=== PATIENT | female | born 1985 | race African-American/Black ===

== ENCOUNTER 2017-08-25 20:03 | Emergency (ER) | payer BC ==
[2017-08-26 02:32] LABS: ADD MAN DIFF? NO
[2017-08-26 02:39] LABS: BASOPHILS % 0.1 % (0.0-2.0); EOSINOPHILS % 0.1 % (0.0-7.0); HEMATOCRIT 31.6 % (37.0-47.0); HEMOGLOBIN 10.7 g/dl (12.0-16.0); LYMPHOCYTES # 0.6 10^3/ul (0.8-2.9); LYMPHOCYTES % 6.7 % (15.0-51.0); MEAN CORPUSCULAR HEMOGLOBIN 30.7 pg (29.0-33.0); MEAN CORPUSCULAR HGB CONC 33.9 g/dl (32.0-37.0); MEAN CORPUSCULAR VOLUME 90.8 fl (82.0-101.0); MEAN PLATELET VOLUME 10.9 fl (7.4-10.4); MONOCYTE # 0.4 10^3/ul (0.3-0.9); MONOCYTES % 4.2 % (0.0-11.0); NEUTROPHIL # 7.9 10^3/ul (1.6-7.5); NEUTROPHILS % 88.6 % (39.0-77.0); PLATELET COUNT 246 10^3/UL (140-415); RED BLOOD COUNT 3.48 10^6/ul (4.20-5.40); RED CELL DISTRIBUTION WIDTH 11.9 % (11.5-14.5)
[2017-08-26 02:39] LABS: WHITE BLOOD COUNT 8.9 10^3/ul (4.8-10.8)
[2017-08-26 02:58] LABS: ADD UMIC YES; UR ASCORBIC ACID NEGATIVE (NEGATIVE); UR BACTERIA FEW /HPF (NONE SEEN); UR BILIRUBIN (Dip) NEGATIVE (NEGATIVE); UR BLOOD (Dip) NEGATIVE (NEGATIVE); UR CLARITY CLEAR (CLEAR); UR COLOR STRAW (YELLOW); UR GLUCOSE (Dip) NEGATIVE (NEGATIVE); UR KETONES (Dip) NEGATIVE (NEGATIVE); UR LEUKOCYTE ESTERASE (Dip) 1+ Leu/ul (NEGATIVE); UR NITRITE (Dip) NEGATIVE (NEGATIVE); UR RBC 2 /HPF (0-5); UR SPECIFIC GRAVITY (Dip) 1.006 (1.003-1.030); UR SQUAMOUS EPITHELIAL CELL FEW /HPF (FEW); UR TOTAL PROTEIN (Dip) NEGATIVE (NEGATIVE); UR UROBILINOGEN (Dip) NEGATIVE (NEGATIVE); UR WBC 12 /HPF (0-5)
== END 2017-08-26 04:37 | disposition home or self-care (01) ==
LOC: FTE 20:03
DX: O23.11 Infections of bladder in pregnancy, first trimester (principal); R10.2 Pelvic and perineal pain; Z3A.13 13 weeks gestation of pregnancy
CPT/HCPCS: 36415; 76801; 81001; 84702; 85025; 99284-25

== ENCOUNTER 2017-10-16 11:31 | Outpatient (CLI) | payer BC ==
[2017-10-16 13:02] LABS: ADD UMIC YES; UR ASCORBIC ACID 40 mg/dL (NEGATIVE); UR BACTERIA FEW /HPF (NONE SEEN); UR BILIRUBIN (Dip) NEGATIVE (NEGATIVE); UR BLOOD (Dip) NEGATIVE (NEGATIVE); UR CLARITY SLIGHTLY CLOUDY (CLEAR); UR COLOR YELLOW (YELLOW); UR GLUCOSE (Dip) NEGATIVE (NEGATIVE); UR KETONES (Dip) NEGATIVE (NEGATIVE); UR LEUKOCYTE ESTERASE (Dip) 2+ Leu/ul (NEGATIVE); UR MUCUS FEW /HPF (NONE SEEN); UR NITRITE (Dip) NEGATIVE (NEGATIVE); UR RBC 1 /HPF (0-5); UR SPECIFIC GRAVITY (Dip) 1.024 (1.003-1.030); UR SQUAMOUS EPITHELIAL CELL FEW /HPF (FEW); UR TOTAL PROTEIN (Dip) NEGATIVE (NEGATIVE); UR UROBILINOGEN (Dip) NEGATIVE (NEGATIVE); UR WBC 5 /HPF (0-5)
== END 2017-10-16 13:50 | disposition home or self-care (01) ==
LOC: OBT 11:31 → L-D 11:31 → OBT 13:50
DX: O26.892 Other specified pregnancy related conditions, second trimester (principal); Z3A.20 20 weeks gestation of pregnancy; R42 Dizziness and giddiness
CPT/HCPCS: 76817; 81001

== ENCOUNTER 2017-10-19 01:55 | Inpatient (IN) | payer BC ==
[2017-10-19 03:56] LABS: ADD UMIC YES; UR ASCORBIC ACID NEGATIVE (NEGATIVE); UR BACTERIA FEW /HPF (NONE SEEN); UR BILIRUBIN (Dip) NEGATIVE (NEGATIVE); UR BLOOD (Dip) NEGATIVE (NEGATIVE); UR CLARITY CLEAR (CLEAR); UR COLOR YELLOW (YELLOW); UR GLUCOSE (Dip) NEGATIVE (NEGATIVE); UR KETONES (Dip) 1+ mg/dL (NEGATIVE); UR LEUKOCYTE ESTERASE (Dip) 1+ Leu/ul (NEGATIVE); UR NITRITE (Dip) NEGATIVE (NEGATIVE); UR RBC 1 /HPF (0-5); UR SPECIFIC GRAVITY (Dip) 1.006 (1.003-1.030); UR SQUAMOUS EPITHELIAL CELL FEW /HPF (FEW); UR TOTAL PROTEIN (Dip) NEGATIVE (NEGATIVE); UR UROBILINOGEN (Dip) NEGATIVE (NEGATIVE); UR WBC 4 /HPF (0-5)
[2017-10-19] MEDS: DEXTROSE 5%-LR 1,000 ML IV (04:08)
[2017-10-19] MEDS: ACETAMINOPHEN 325 MG TAB PO (04:08)
[2017-10-19] MEDS ORDERED: morphine 2 MG INJ IV ×2 (04:40→10:58)
[2017-10-19 04:53] LABS: ADD MAN DIFF? NO
[2017-10-19 05:01] LABS: BASOPHILS % 0.1 % (0.0-2.0); EOSINOPHILS % 0.2 % (0.0-7.0); HEMATOCRIT 27.9 % (37.0-47.0); HEMOGLOBIN 9.7 g/dl (12.0-16.0); LYMPHOCYTES % 8.2 % (15.0-51.0); MEAN CORPUSCULAR HEMOGLOBIN 31.2 pg (29.0-33.0); MEAN CORPUSCULAR HGB CONC 34.8 g/dl (32.0-37.0); MEAN CORPUSCULAR VOLUME 89.7 fl (82.0-101.0); MEAN PLATELET VOLUME 11.3 fl (7.4-10.4); MONOCYTE # 0.9 10^3/ul (0.3-0.9); MONOCYTES % 7.8 % (0.0-11.0); NEUTROPHIL # 9.6 10^3/ul (1.6-7.5); NEUTROPHILS % 83.4 % (39.0-77.0); PLATELET COUNT 221 10^3/UL (140-415); RED BLOOD COUNT 3.11 10^6/ul (4.20-5.40); RED CELL DISTRIBUTION WIDTH 11.9 % (11.5-14.5)
[2017-10-19 05:01] LABS: WHITE BLOOD COUNT 11.5 10^3/ul (4.8-10.8)
[2017-10-19] MEDS: morphine 2 MG INJ IV (05:44)
[2017-10-19] MEDS: LACTATED RINGER'S 1,000 ML IV ×2 (09:13→17:09)
[2017-10-19] MEDS: PRENATAL VITAMIN PO (09:16)
[2017-10-19] MEDS: morphine 10 MG INJ IV (11:09)
[2017-10-19 11:14] LABS: ADD MAN DIFF? NO
[2017-10-19 11:19] LABS: WHITE BLOOD COUNT 11.1 10^3/ul (4.8-10.8)
[2017-10-19 11:19] LABS: BASOPHILS % 0.1 % (0.0-2.0); EOSINOPHILS % 0.2 % (0.0-7.0); HEMOGLOBIN 10.3 g/dl (12.0-16.0); LYMPHOCYTES # 1.1 10^3/ul (0.8-2.9); LYMPHOCYTES % 9.8 % (15.0-51.0); MEAN CORPUSCULAR HEMOGLOBIN 30.7 pg (29.0-33.0); MEAN CORPUSCULAR HGB CONC 34.3 g/dl (32.0-37.0); MEAN CORPUSCULAR VOLUME 89.3 fl (82.0-101.0); MEAN PLATELET VOLUME 10.8 fl (7.4-10.4); MONOCYTE # 0.8 10^3/ul (0.3-0.9); MONOCYTES % 7.2 % (0.0-11.0); NEUTROPHIL # 9.2 10^3/ul (1.6-7.5); NEUTROPHILS % 82.5 % (39.0-77.0); PLATELET COUNT 244 10^3/UL (140-415); RED BLOOD COUNT 3.36 10^6/ul (4.20-5.40); RED CELL DISTRIBUTION WIDTH 11.9 % (11.5-14.5)
[2017-10-19 11:37] LABS: AMYLASE 54 U/L (11-123)
[2017-10-19 11:39] LABS: ALANINE AMINOTRANSFERASE 34 IU/L (13-69); ALBUMIN 3.7 g/dl (3.3-4.9); ALBUMIN/GLOBULIN RATIO 1.02; ALKALINE PHOSPHATASE 93 IU/L (42-121); ANION GAP 14 (8-16); ASPARTATE AMINO TRANSFERASE 21 IU/L (15-46); BILIRUBIN,INDIRECT 0.2 mg/dl (0-1.1); BILIRUBIN,TOTAL 0.2 mg/dl (0.2-1.3); BLOOD UREA NITROGEN 4 mg/dl (7-20); CALCIUM 9.5 mg/dl (8.4-10.2); CARBON DIOXIDE 30 mmol/L (21-31); CHLORIDE 102 mmol/L (97-110); GLUCOSE 94 mg/dl (70-220); LIPASE 44 U/L (23-300); POTASSIUM 3.5 mmol/L (3.5-5.1); SODIUM 142 mmol/L (135-144); TOTAL PROTEIN 7.3 g/dl (6.1-8.1)
[2017-10-19] MEDS: INDOMETHACIN 50 MG PO (13:46)
[2017-10-19] MEDS: INDOMETHACIN 25 MG PO (17:51)
[2017-10-20] MEDS: INDOMETHACIN 25 MG PO ×4 (00:06→18:04)
[2017-10-20] MEDS: LACTATED RINGER'S 1,000 ML IV ×2 (01:41→08:51)
[2017-10-20] MEDS: PRENATAL VITAMIN PO (08:51)
[2017-10-21] MEDS: INDOMETHACIN 25 MG PO ×3 (00:08→11:55)
[2017-10-21] MEDS: ACETAMINOPHEN 325 MG TAB PO (08:43)
[2017-10-21] MEDS: PRENATAL VITAMIN PO (08:43)
== END 2017-10-21 13:57 | disposition home or self-care (01) | DRG 782 ==
LOC: OBT 01:55 → L-D 01:55 → OBT 03:00 → L-D 03:00 → PP1 16:10
DX: O34.12 Maternal care for benign tumor of corpus uteri, second trimester (principal); Z3A.20 20 weeks gestation of pregnancy
CPT/HCPCS: 76817; 80053; 81001; 82150; 83690; 85025; 87086

== ENCOUNTER 2017-11-19 08:28 | Inpatient (IN) | payer BC ==
[2017-11-19] MEDS: LACTATED RINGER'S 500 ML IV (10:00)
[2017-11-19] MEDS ORDERED: MAGNESIUM SULFATE 4 GM/100 ML 100 ML (10:13)
[2017-11-19] MEDS ORDERED: LACTATED RINGER'S 1,000 ML IV (10:13)
[2017-11-19] MEDS: LACTATED RINGER'S 1,000 ML IV ×2 (10:29→12:45)
[2017-11-19] MEDS: BETAMET NA PHOS/AC(6 MG/ML) 5ML INJ IM (10:31)
[2017-11-19 10:34] LABS: ADD MAN DIFF? NO
[2017-11-19] MEDS: MAGNESIUM SULFATE 4 GM/100 ML 100 ML IV (10:38)
[2017-11-19 10:39] LABS: BASOPHILS % 0.1 % (0.0-2.0); EOSINOPHILS % 0.6 % (0.0-7.0); HEMATOCRIT 30.1 % (37.0-47.0); HEMOGLOBIN 10.5 g/dl (12.0-16.0); LYMPHOCYTES # 1.1 10^3/ul (0.8-2.9); LYMPHOCYTES % 15.8 % (15.0-51.0); MEAN CORPUSCULAR HEMOGLOBIN 30.7 pg (29.0-33.0); MEAN CORPUSCULAR HGB CONC 34.9 g/dl (32.0-37.0); MEAN PLATELET VOLUME 10.6 fl (7.4-10.4); MONOCYTE # 0.5 10^3/ul (0.3-0.9); MONOCYTES % 7.2 % (0.0-11.0); NEUTROPHIL # 5.1 10^3/ul (1.6-7.5); NEUTROPHILS % 75.7 % (39.0-77.0); PLATELET COUNT 232 10^3/UL (140-415); RED BLOOD COUNT 3.42 10^6/ul (4.20-5.40); RED CELL DISTRIBUTION WIDTH 12.3 % (11.5-14.5)
[2017-11-19 10:39] LABS: WHITE BLOOD COUNT 6.8 10^3/ul (4.8-10.8)
[2017-11-19] MEDS: AMPICILLIN 2 GM/NS (PMX) 100 ML IV (10:44)
[2017-11-19 10:57] LABS: ADD UMIC YES; UR ASCORBIC ACID NEGATIVE (NEGATIVE); UR BACTERIA FEW /HPF (NONE SEEN); UR BILIRUBIN (Dip) NEGATIVE (NEGATIVE); UR BLOOD (Dip) 2+ mg/dL (NEGATIVE); UR CLARITY CLEAR (CLEAR); UR COLOR YELLOW (YELLOW); UR GLUCOSE (Dip) NEGATIVE (NEGATIVE); UR KETONES (Dip) NEGATIVE (NEGATIVE); UR LEUKOCYTE ESTERASE (Dip) 1+ Leu/ul (NEGATIVE); UR MUCUS FEW /HPF (NONE SEEN); UR NITRITE (Dip) NEGATIVE (NEGATIVE); UR RBC 68 /HPF (0-5); UR SPECIFIC GRAVITY (Dip) 1.006 (1.003-1.030); UR TOTAL PROTEIN (Dip) NEGATIVE (NEGATIVE); UR UROBILINOGEN (Dip) NEGATIVE (NEGATIVE); UR WBC 16 /HPF (0-5)
[2017-11-19] MEDS ORDERED: OXYCODONE/ACETAMINOPHEN (5/325) TAB PO (11:00)
[2017-11-19] MEDS ORDERED: OXYTOCIN 30 UNITS/LR 500 ML IV ×2 (11:00→18:30)
[2017-11-19] MEDS ORDERED: IBUPROFEN 600 MG TAB PO (11:00)
[2017-11-19] MEDS ORDERED: METHYLERGONOVINE 0.2 MG INJ IM (11:00)
[2017-11-19] MEDS ORDERED: LIDOCAINE 1% (MPF) 30 ML INJ INJ (11:00)
[2017-11-19 11:01] LABS: ALANINE AMINOTRANSFERASE 20 IU/L (13-69); ALANINE AMINOTRANSFERASE 24 IU/L (13-69); ALBUMIN 3.9 g/dl (3.3-4.9); ALBUMIN/GLOBULIN RATIO 0.92; ALKALINE PHOSPHATASE 162 IU/L (42-121); ANION GAP 15 (8-16); ASPARTATE AMINO TRANSFERASE 24 IU/L (15-46); BILIRUBIN,INDIRECT 0.2 mg/dl (0-1.1); BILIRUBIN,TOTAL 0.2 mg/dl (0.2-1.3); BLOOD UREA NITROGEN 5 mg/dl (7-20); CALCIUM 9.6 mg/dl (8.4-10.2); CARBON DIOXIDE 24 mmol/L (21-31); CHLORIDE 104 mmol/L (97-110); CREATININE 0.67 mg/dl (0.44-1.00); GLUCOSE 78 mg/dl (70-220); POTASSIUM 4.2 mmol/L (3.5-5.1); SODIUM 139 mmol/L (135-144); TOTAL PROTEIN 8.1 g/dl (6.1-8.1); URIC ACID 4.5 mg/dl (3.1-7.9)
[2017-11-19 11:01] LABS: ASPARTATE AMINO TRANSFERASE 26 IU/L (15-46)
[2017-11-19 11:02] LABS: INR 0.99; PARTIAL THROMBOPLASTIN TIME 30.1 Sec (25.0-35.0); PROTIME 13.2 Sec (11.9-14.9)
[2017-11-19] MEDS: MAGNESIUM SULFATE 20 GM/500 ML 500 ML IV (11:09)
[2017-11-19] MEDS ORDERED: FENTAnyl 2MCG/ML-ROPIV 0.2% 100 ML (13:05)
[2017-11-19] MEDS: OXYTOCIN 30 UNITS/LR 500 ML IV ×3 (13:51→14:33)
[2017-11-19] MEDS: MISOPROSTOL 200 MCG TAB PR (13:57)
[2017-11-19] MEDS: CARBOPROST 250 MCG INJ IM (14:05)
[2017-11-19] MEDS ORDERED: AMPICILLIN 1 GM/NS (PMX) 50 ML IV (14:30)
[2017-11-19] MEDS: LACTATED RINGER'S 1,000 ML IV* (18:13)
[2017-11-19] MEDS ORDERED: MISOPROSTOL 200 MCG TAB PR (18:30)
[2017-11-19] MEDS ORDERED: ACETAMINOPHEN 325 MG TAB PO (18:30)
[2017-11-19] MEDS ORDERED: WITCH HAZEL/GLYCERIN PAD PR (18:30)
[2017-11-19] MEDS ORDERED: CARBOPROST 250 MCG INJ IM (18:30)
[2017-11-19] MEDS ORDERED: DIBUCAINE 1% 30 GM OINT PR (18:30)
[2017-11-19] MEDS ORDERED: BENZOCAINE 20% 56 ML SPRAY TOP (18:30)
[2017-11-19] MEDS ORDERED: INFLUENZA VIRUS VACCINE 0.5 ML SYG IM* (21:00)
[2017-11-19] MEDS: SENNA/DOCUSATE NA (8.6MG/50MG) TAB PO (21:00)
[2017-11-19 22:55] LABS: RAPID PLASMA REAGIN NONREACTIVE (NR)
[2017-11-20] MEDS: IBUPROFEN 600 MG TAB PO ×4 (00:41→14:22)
[2017-11-20] MEDS: LACTATED RINGER'S 1,000 ML IV* ×3 (02:13→18:13)
[2017-11-20] MEDS: SENNA/DOCUSATE NA (8.6MG/50MG) TAB PO ×2 (09:00→21:00)
[2017-11-20] MEDS ORDERED: PRENATAL VITAMIN PO (09:00)
[2017-11-20 15:29] LABS: ADD MAN DIFF? NO
[2017-11-20 15:32] LABS: BASOPHILS % 0.1 % (0.0-2.0); EOSINOPHILS % 0.2 % (0.0-7.0); HEMATOCRIT 25.1 % (37.0-47.0); HEMOGLOBIN 8.5 g/dl (12.0-16.0); LYMPHOCYTES # 1.2 10^3/ul (0.8-2.9); LYMPHOCYTES % 10.3 % (15.0-51.0); MEAN CORPUSCULAR HGB CONC 33.9 g/dl (32.0-37.0); MEAN CORPUSCULAR VOLUME 88.7 fl (82.0-101.0); MEAN PLATELET VOLUME 11.3 fl (7.4-10.4); MONOCYTE # 0.9 10^3/ul (0.3-0.9); MONOCYTES % 7.9 % (0.0-11.0); NEUTROPHIL # 9.2 10^3/ul (1.6-7.5); NEUTROPHILS % 81.1 % (39.0-77.0); PLATELET COUNT 234 10^3/UL (140-415); RED BLOOD COUNT 2.83 10^6/ul (4.20-5.40); RED CELL DISTRIBUTION WIDTH 12.7 % (11.5-14.5)
[2017-11-20 15:32] LABS: WHITE BLOOD COUNT 11.3 10^3/ul (4.8-10.8)
[2017-11-20] MEDS: HYDROCODONE/APAP (5/325) TAB PO (22:08)
[2017-11-21] MEDS: IBUPROFEN 600 MG TAB PO ×4 (00:20→17:23)
[2017-11-21] MEDS: LACTATED RINGER'S 1,000 ML IV* (02:13)
[2017-11-21] MEDS: SENNA/DOCUSATE NA (8.6MG/50MG) TAB PO ×2 (09:00→21:00)
[2017-11-21] MEDS: DIPHTH/TET/ACEL PERTUSS (ADULT) 0.5 ML VIAL IM* (09:39)
[2017-11-21] MEDS: FERROUS SULFATE (EC) 325 MG TAB PO ×3 (09:49→21:13)
[2017-11-21 19:53] LABS: ADD MAN DIFF? NO
[2017-11-21 19:55] LABS: BASOPHILS % 0.2 % (0.0-2.0); EOSINOPHILS # 0.1 10^3/ul (0.0-0.5); EOSINOPHILS % 0.4 % (0.0-7.0); HEMATOCRIT 28.4 % (37.0-47.0); HEMOGLOBIN 9.7 g/dl (12.0-16.0); LYMPHOCYTES # 1.7 10^3/ul (0.8-2.9); LYMPHOCYTES % 11.4 % (15.0-51.0); MEAN CORPUSCULAR HEMOGLOBIN 30.5 pg (29.0-33.0); MEAN CORPUSCULAR HGB CONC 34.2 g/dl (32.0-37.0); MEAN CORPUSCULAR VOLUME 89.3 fl (82.0-101.0); MEAN PLATELET VOLUME 10.8 fl (7.4-10.4); MONOCYTE # 0.9 10^3/ul (0.3-0.9); MONOCYTES % 6.1 % (0.0-11.0); NEUTROPHIL # 11.9 10^3/ul (1.6-7.5); NEUTROPHILS % 81.4 % (39.0-77.0); PLATELET COUNT 265 10^3/UL (140-415); RED BLOOD COUNT 3.18 10^6/ul (4.20-5.40); RED CELL DISTRIBUTION WIDTH 12.6 % (11.5-14.5)
[2017-11-21 19:55] LABS: WHITE BLOOD COUNT 14.7 10^3/ul (4.8-10.8)
[2017-11-21 20:05] LABS: ADD UMIC YES; UR ASCORBIC ACID NEGATIVE (NEGATIVE); UR BILIRUBIN (Dip) NEGATIVE (NEGATIVE); UR BLOOD (Dip) 3+ mg/dL (NEGATIVE); UR CLARITY CLEAR (CLEAR); UR COLOR STRAW (YELLOW); UR GLUCOSE (Dip) NEGATIVE (NEGATIVE); UR KETONES (Dip) NEGATIVE (NEGATIVE); UR LEUKOCYTE ESTERASE (Dip) 2+ Leu/ul (NEGATIVE); UR NITRITE (Dip) NEGATIVE (NEGATIVE); UR RBC 14 /HPF (0-5); UR SPECIFIC GRAVITY (Dip) 1.008 (1.003-1.030); UR TOTAL PROTEIN (Dip) NEGATIVE (NEGATIVE); UR UROBILINOGEN (Dip) NEGATIVE (NEGATIVE); UR WBC 18 /HPF (0-5)
[2017-11-21 20:23] LABS: ALANINE AMINOTRANSFERASE 26 IU/L (13-69); ALBUMIN 4.1 g/dl (3.3-4.9); ALBUMIN/GLOBULIN RATIO 1.05; ALKALINE PHOSPHATASE 125 IU/L (42-121); ANION GAP 16 (8-16); ASPARTATE AMINO TRANSFERASE 29 IU/L (15-46); BLOOD UREA NITROGEN 7 mg/dl (7-20); CALCIUM 9.7 mg/dl (8.4-10.2); CARBON DIOXIDE 29 mmol/L (21-31); CHLORIDE 100 mmol/L (97-110); CREATININE 0.75 mg/dl (0.44-1.00); GLUCOSE 85 mg/dl (70-220); POTASSIUM 3.7 mmol/L (3.5-5.1); SODIUM 141 mmol/L (135-144); URIC ACID 3.2 mg/dl (3.1-7.9)
[2017-11-22] MEDS: IBUPROFEN 600 MG TAB PO ×4 (00:08→17:48)
[2017-11-22] MEDS: SENNA/DOCUSATE NA (8.6MG/50MG) TAB PO ×2 (09:52→21:00)
[2017-11-22] MEDS: FERROUS SULFATE (EC) 325 MG TAB PO ×3 (09:52→21:13)
[2017-11-22] MEDS: LABETALOL 200 MG TAB PO (22:01)
[2017-11-23] MEDS: HYDROCODONE/APAP (5/325) TAB PO (01:50)
[2017-11-23] MEDS: LABETALOL 200 MG TAB PO (05:56)
[2017-11-23] MEDS: IBUPROFEN 600 MG TAB PO ×4 (05:56→18:24)
[2017-11-23] MEDS: FERROUS SULFATE (EC) 325 MG TAB PO ×3 (08:54→20:46)
[2017-11-23] MEDS: SENNA/DOCUSATE NA (8.6MG/50MG) TAB PO ×2 (08:55→20:47)
[2017-11-23] MEDS: NIFEdipine (XL) 30 MG TAB PO ×2 (11:42→20:46)
[2017-11-24] MEDS: IBUPROFEN 600 MG TAB PO ×4 (00:11→18:00)
[2017-11-24] MEDS: FERROUS SULFATE (EC) 325 MG TAB PO ×3 (08:38→21:39)
[2017-11-24] MEDS: NIFEdipine (XL) 30 MG TAB PO ×2 (08:43→08:44)
[2017-11-24] MEDS: SENNA/DOCUSATE NA (8.6MG/50MG) TAB PO ×2 (08:44→21:39)
[2017-11-24] MEDS ORDERED: LABETALOL 200 MG TAB PO (21:00)
[2017-11-24] MEDS: HYDROCODONE/APAP (5/325) TAB PO (21:38)
[2017-11-24] MEDS: LABETALOL 100 MG TAB PO (21:56)
[2017-11-25] MEDS: IBUPROFEN 600 MG TAB PO ×4 (05:56→18:00)
[2017-11-25 08:01] LABS: CHOLESTEROL 191 mg/dl (100-200)
[2017-11-25 08:01] LABS: CHOL/HDL RATIO 2.9 RATIO; HDL CHOLESTEROL 64 mg/dl (34-82); LDL CHOLESTEROL,CALCULATED 117 mg/dl; TRIGLYCERIDES 48 mg/dl (0-149)
[2017-11-25] MEDS: FERROUS SULFATE (EC) 325 MG TAB PO ×3 (08:29→21:03)
[2017-11-25] MEDS: LABETALOL 100 MG TAB PO ×3 (08:29→21:05)
[2017-11-25] MEDS: SENNA/DOCUSATE NA (8.6MG/50MG) TAB PO ×2 (08:30→21:00)
[2017-11-25] MEDS ORDERED: LABETALOL 100 MG TAB PO (09:00)
[2017-11-25] MEDS: HYDROCODONE/APAP (5/325) TAB PO (22:35)
[2017-11-26] MEDS: IBUPROFEN 600 MG TAB PO ×5 (06:00→17:40)
[2017-11-26] MEDS: FERROUS SULFATE (EC) 325 MG TAB PO ×2 (08:48→13:04)
[2017-11-26] MEDS: LABETALOL 100 MG TAB PO (08:56)
[2017-11-26] MEDS: SENNA/DOCUSATE NA (8.6MG/50MG) TAB PO (09:00)
== END 2017-11-26 19:40 | disposition home or self-care (01) | DRG 774 ==
LOC: OBT 08:28 → MS4 11-24 03:17 → L-D 08:30 → OBT 10:12 → L-D 10:12 → PP1 18:13
PROC: 10E0XZZ Delivery of Products of Conception, External Approach (ICD-10-PCS; principal; 2017-11-19)
PROC: 4A1HXCZ Monitoring of Products of Conception, Cardiac Rate, External Approach (ICD-10-PCS; 2017-11-19)
DX: O60.14X0 Preterm labor third trimester with preterm delivery third trimester, not applicable or unspecified (principal); O10.92 Unspecified pre-existing hypertension complicating childbirth; O99.43 Diseases of the circulatory system complicating the puerperium; O99.13 Other diseases of the blood and blood-forming organs and certain disorders involving the immune mechanism complicating the puerperium; R00.0 Tachycardia, unspecified; D72.829 Elevated white blood cell count, unspecified; O99.344 Other mental disorders complicating childbirth; F41.9 Anxiety disorder, unspecified; O99.02 Anemia complicating childbirth; Z3A.25 25 weeks gestation of pregnancy; Z37.0 Single live birth
CPT/HCPCS: 62319; 76641-50; 76815; 76817; 80053; 80061; 81001; 84443; 84450; 84460; 84560; 85025; 85384; 85610; 85730; 86592; 86850; 86900; 86901; 88307; 90686; 93005; 93306

== ENCOUNTER 2017-12-16 06:41 | Emergency (ER) | payer BC ==
[2017-12-16 07:36] LABS: ADD MAN DIFF? NO
[2017-12-16 07:38] LABS: BASOPHILS % 0.4 % (0.0-2.0); EOSINOPHILS # 0.2 10^3/ul (0.0-0.5); EOSINOPHILS % 3.5 % (0.0-7.0); HEMATOCRIT 28.9 % (37.0-47.0); HEMOGLOBIN 9.1 g/dl (12.0-16.0); LYMPHOCYTES # 1.2 10^3/ul (0.8-2.9); LYMPHOCYTES % 24.9 % (15.0-51.0); MEAN CORPUSCULAR HEMOGLOBIN 28.4 pg (29.0-33.0); MEAN CORPUSCULAR HGB CONC 31.5 g/dl (32.0-37.0); MEAN CORPUSCULAR VOLUME 90.3 fl (82.0-101.0); MEAN PLATELET VOLUME 9.4 fl (7.4-10.4); MONOCYTE # 0.6 10^3/ul (0.3-0.9); MONOCYTES % 12.2 % (0.0-11.0); NEUTROPHIL # 2.9 10^3/ul (1.6-7.5); NEUTROPHILS % 58.8 % (39.0-77.0); PLATELET COUNT 489 10^3/UL (140-415); RED CELL DISTRIBUTION WIDTH 13.2 % (11.5-14.5)
[2017-12-16 07:38] LABS: WHITE BLOOD COUNT 4.9 10^3/ul (4.8-10.8)
[2017-12-16 07:49] LABS: ADD UMIC YES; UR ASCORBIC ACID NEGATIVE (NEGATIVE); UR BACTERIA FEW /HPF (NONE SEEN); UR BILIRUBIN (Dip) NEGATIVE (NEGATIVE); UR BLOOD (Dip) 3+ mg/dL (NEGATIVE); UR CLARITY CLEAR (CLEAR); UR COLOR STRAW (YELLOW); UR GLUCOSE (Dip) NEGATIVE (NEGATIVE); UR KETONES (Dip) NEGATIVE (NEGATIVE); UR LEUKOCYTE ESTERASE (Dip) NEGATIVE Leu/ul (NEGATIVE); UR NITRITE (Dip) NEGATIVE (NEGATIVE); UR RBC 21 /HPF (0-5); UR SPECIFIC GRAVITY (Dip) 1.003 (1.003-1.030); UR TOTAL PROTEIN (Dip) NEGATIVE (NEGATIVE); UR UROBILINOGEN (Dip) NEGATIVE (NEGATIVE); UR WBC 4 /HPF (0-5)
[2017-12-16 08:28] LABS: INR 1.01; PROTIME 13.4 Sec (11.9-14.9)
== END 2017-12-16 09:15 | disposition home or self-care (01) ==
LOC: FTE 06:41 → E/R 09:15
DX: O90.89 Other complications of the puerperium, not elsewhere classified (principal); O90.81 Anemia of the puerperium; D25.9 Leiomyoma of uterus, unspecified; D64.9 Anemia, unspecified; O72.3 Postpartum coagulation defects; R40.2142 Coma scale, eyes open, spontaneous, at arrival to emergency department; R40.2252 Coma scale, best verbal response, oriented, at arrival to emergency department; R40.2362 Coma scale, best motor response, obeys commands, at arrival to emergency department
CPT/HCPCS: 76856; 81001; 85025; 85610; 99284-25